=== PATIENT | male | born 1965 | race Caucasian/White ===

== ENCOUNTER 2017-03-20 08:33 | Emergency (ER) | payer OTHER ==
[2017-03-20] MEDS ORDERED: PROPARACAINE 0.5% OPHTH DROPS 15 ML ONE (09:02)
--- NOTE | 2017-03-20 09:19 | ED Physician Documentation ---
PD HPI OPHTHO - Stated complaint Stated Complaint: R EYE REDNESS - Chief complaint Chief Complaint: Heent - History obtained from History obtained from: Patient - History of Present Illness Timing - onset: How many days ago (3) Timing - duration: Days (3) Timing - details: Gradual onset, Still present Location: Right Quality / character: Itching, Sharp Associated symptoms: Redness, Tearing, Photophobia Contributing factors: Other (had something similar about 5-6 years ago.) Similar symptoms before: No diagnosis Recently seen: Not recently seen - Additional information Additional information: 51 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 He did take some allergy medication without relief. Review of Systems Constitutional: denies: Fever, Chills PD PAST MEDICAL HISTORY - Past Medical History Past Medical History: No - Past Surgical History Past Surgical History: No - Present Medications Home Medications: Ambulatory Orders Medication Instructions Recorded Confirmed Acyclovir 400 mg PO 5XD #35 tablet 03/20/17 - Allergies Allergies/Adverse Reactions: Allergies Allergy/AdvReac Type Severity Reaction Status Date / Time No Known Drug Allergies Allergy Verified 03/20/17 08:40 - Social History Does the pt smoke?: No Smoking Status: Never smoker Does the pt drink ETOH?: No Does the pt have substance abuse?: No PD ED PE NORMAL - Vitals Vital signs reviewed: (hypertensive) - General General: Alert and oriented X 3, No acute distress, Well developed/nourished - HEENT HEENT: Atraumatic, PERRL, EOMI, Other (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 The left is without uptake. ) - Neck Neck: Supple, no meningeal sign, No bony TTP - Respiratory Respiratory: No respiratory distress Results - Vitals Vitals: Vital Signs - 24 hr 03/20/17 08:37 Temperature 36.2 C L Heart Rate 65 Respiratory 16 Rate Blood Pressure 142/95 H O2 Saturation 97 Oxygen O2 Source Room air Departure - Departure Disposition: 01 Home, Self Care Clinical Impression: HSV epithelial keratitis Condition: Stable Instructions: ED Herpes Keratitis Follow-Up: Bhavin Llanos MD [Provider Admit Priv/Credential] - Prescriptions: Acyclovir 400 mg PO 5XD #35 tablet Comments: Today in the Emergency Department your blood pressure was elevated. This can happen from the stress of the visit itself, from a current illness or circumstance or from uncontrolled hypertension. If you take blood pressure medications take your usual mediations, have your blood pressure re-checked in an appropriate setting and follow up any elevation with your primary care doctor. Forms: Activity restrictions
[2017-03-20 09:37] VITALS: BP 133/89
== END 2017-03-20 09:38 | disposition home or self-care (01) ==
LOC: ED 08:33
DX: B00.52 Herpesviral keratitis (principal)
CPT/HCPCS: 99283